=== PATIENT | male | born 1940 | race Caucasian/White ===

== ENCOUNTER → 2018-11-01 | Outpatient (CLI) | payer OTHER ==
[~2018-11-01] MED LIST: AGGRENOX 25 MG1 EACH PO; AMARYL2 MG PO; AMARYL4 MG PO; ARICEPT10 M1 PO; ASPIR 8181 MG PO; ASPIRIN325 PO; BACTRIM 400-801 EACH; DOXYCYCLINE HYC50 MG PO; GLIMEPIRIDE1 MG PO; HYDROXYZINE HCL25 M1 PO; IMDUR 60 MG TAB60 M1 PO; LANTUS SUBQ; LASIX 40 MG TAB40 M2 PO; LIPITOR40 MG PO; LISINOPRIL20 MG PO; LOCOID 0.1% CRE15 GM TOP; MIRALAX17 GM PO; NAMENDA 5 MG TAB5 M1 PO; NIACIN50 MG PO; PLAVIX 75 MG TA75 M1 PO; RANEXA1000 MG PO; SLO-NIACIN500 MG PO; SPIRONOLACTONE25 M1 PO; TOPROL XL50 MG PO; ZANTAC 150MG T150 M1 PO
== END ==
LOC: M.ULTRA 14:46
DX: R22.1 Localized swelling, mass and lump, neck (principal)

== ENCOUNTER → 2018-11-10 | Outpatient (CLI) | payer OTHER | LOC: M.CT 10:43 | DX: R22.1 Localized swelling, mass and lump, neck (principal); M47.812 Spondylosis without myelopathy or radiculopathy, cervical region; I25.10 Atherosclerotic heart disease of native coronary artery without angina pectoris; Z95.0 Presence of cardiac pacemaker ==

== ENCOUNTER → 2018-11-17 | Outpatient (CLI) | payer OTHER ==
--- NOTE | 2018-11-22 17:07 | PATH ---
[address] [address] PATHOLOGY RPT PROCEDURE Name: TARA GRAY Room: [facility] ZOË Sanchez#: [id number] Admission: 11/17/18 Date of : 36 Discharge: Report #: [id number] Path Case #: [id number] LCA Accession Number: [id number] . 01 Material submitted: . LEFT SIDE NECK MASS . 01 Clinical history: . Left side neck mass 1.7 x 2.0 x 1.2 . 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 See comment. (SHANTEL:pit 11/22/2018) QTP/11/22/2018 . 02 Comment: A panel of properly controlled immunohistochemical stains performed on A1 shows the malignant cells to have the following characteristics: Keratin Luis: Positive P16: Positive P40: Negative CK7: Negative CK20: Negative S100: Negative TTF-1: Negative CDX-2: Negative LCA: Negative; highlights background lymphoid population PSA: Negative . These findings are most consistent with a poorly differentiated squamous cell and with the p16 positivity (HPV surrogate marker), suggests a head and neck origin. Other immunohistochemistry suggests a lung, colorectal, or prostatic primary to be unlikely. . Discussed with Dr. Deleon at approximately 1140 on 11/22/2018. Reviewed with Dr. Sergey Pereira who agrees with the diagnosis. (SHANTEL:pit 11/22/2018) . 02 Electronically signed: . Prudencio Gunn MD, Pathologist NPI- [id number] . 01 Gross description: . Received in formalin labeled "Tara Gray, lymph node BX," are 2 distinct needle cores of lee soft tissue measuring 0.6 and 1.5 [place] [address] PATHOLOGY RPT PROCEDURE Name: TARA GRAY Room: [facility]#: [id number] Admission: 11/17/18 Date of : 36 Discharge: Report #: [id number] Path Case #: [id number] length and less than 0.1 cm each in diameter. The specimen is submitted entirely in cassette A1 and A2. (TSD; 11/17/2018) TOB/TOB . 02 Pathologist provided ICD-10: C79.89 . 02 CPT . 167344, V10575, M71667 Specimen Comment: A courtesy copy of this report has been sent to Specimen Comment: [phone]. Specimen Comment: Report sent to Performed at: [address], [place], [place] [id number] MD Joe Morton MD Phone: [phone] Performed at: 02 [facility] [address], [place], [place] [id number] MD Prudencio Gunn MD Phone: [phone]
== END | disposition home or self-care (01) ==
LOC: M.ULTRA 08:04
DX: C96.Z Other specified malignant neoplasms of lymphoid, hematopoietic and related tissue (principal); I12.9 Hypertensive chronic kidney disease with stage 1 through stage 4 chronic kidney disease, or unspecified chronic kidney disease; E11.22 Type 2 diabetes mellitus with diabetic chronic kidney disease; N18.3 Chronic kidney disease, stage 3 (moderate); E78.00 Pure hypercholesterolemia, unspecified; F03.90 Unspecified dementia, unspecified severity, without behavioral disturbance, psychotic disturbance, mood disturbance, and anxiety; R41.82 Altered mental status, unspecified; Z88.2 Allergy status to sulfonamides; Z88.8 Allergy status to other drugs, medicaments and biological substances; Z79.82 Long term (current) use of aspirin; Z79.899 Other long term (current) drug therapy; Z86.73 Personal history of transient ischemic attack (TIA), and cerebral infarction without residual deficits; Z95.1 Presence of aortocoronary bypass graft; Z87.891 Personal history of nicotine dependence; Z79.4 Long term (current) use of insulin; Z98.890 Other specified postprocedural states

== ENCOUNTER 2019-02-22 08:18 | Inpatient (IN) | payer OTHER ==
[2019-02-22] VITALS (33 sets, daily range): BP systolic 68–139; BP diastolic 28–103
[~2019-02-22] VITALS: Ht 188 cm; Wt 104.0 kg
--- NOTE | ~2019-02-22 | PROC ---
[address] [address] PROCEDURE REPORT Name: TARA BROWNLEE Room: [place] [address] ADM IN ..#: [id number] Admission: 02/22/19 Attend Phys: Anthony Trinidad MD Discharge: Date of : 36 Report #: [id number] THIS REPORT FOR: //name// For GI report, please see the Provation report in Perceptive 7 content. By: [id number] Records Staff KENISHA /PANCHITO
--- NOTE | ~2019-02-22 | CON ---
[address] [address] CONSULTATION Name: TARA BROWNLEE Room: [address] IN .R.#: [id number] Admission: 02/22/19 Attend Phys: Leigh Trinidad MD Discharge: Date of : 38 Report #: [id number] THIS REPORT FOR: //name// CC: LEIGH Sengie [facility] DATE OF SERVICE: 02/23/2019 REQUESTING PHYSICIAN: Leigh Trinidad MD REASON FOR CONSULT: Dysphagia and evaluation for possible PEG tube. HISTORY OF PRESENT ILLNESS: This is an 78-year-old male with history of dementia and lymphoma who has received 33 rounds of radiation. He has 3 more to complete. He presented to the hospital with weakness and unresponsiveness based on his . Since admission to hospital, he noticed to have difficulty swallowing as he was choking and coughing when he was attempting to eat. Swallow study has been performed by speech therapist and they recommended thickening liquids. The patient also takes Plavix, which has been hold since 02/22/2019. PAST MEDICAL HISTORY: 1. Significant for history of lymphoma, status post radiation therapy with 3 more radiation left. 2. Dementia. 3. CVA. 4. Diabetes mellitus. 5. Hypertension. 6. Dyslipidemia. 7. Coronary artery disease, status post CABG in 1989. ALLERGIES: Significant to BACTRIM. MEDICATIONS: Please refer to hospital MAR. SOCIAL HISTORY: The patient has remote history of tobaccoism, but does not smoke anymore. He does not also drink alcoholic beverage. He lives with his and appears to be supportive as she is sitting by bedside and gives most of the history. FAMILY HISTORY: Noncontributory. PHYSICAL EXAMINATION: VITAL SIGNS: Reveals blood pressure of 109/38, respirations 12, pulse 73, [place] [address] CONSULTATION Name: TARA BROWNLEE Room: [address]#: [id number] Admission: 02/22/19 Attend Phys: Leigh Trinidad MD Discharge: Date of : 38 Report #: [id number] temperature 98.7. LUNGS: Clear. CARDIOVASCULAR: Regular. ABDOMEN: Soft, nontender, nondistended. Bowel sounds are positive. NEUROLOGIC: The patient is able to answer questions properly. He appears weak and sleepy. LABORATORY DATA: Reveal sodium of 142, potassium 4.0, BUN is 29, creatinine 1.1, glucose is 187. Liver function tests all within normal limits. Calcium 7.8. WBC is 8.6 with hemoglobin of 10.5 and platelet of 175. ASSESSMENT AND PLAN: The patient with a history of radiation therapy to the chest who was admitted to the hospital with weakness and nonresponsiveness. The patient is feeling better, but has difficulty with swallowing. We will recommend to reorder the swallow test on Tuesday and we will consider an EGD with dilation versus PEG tube placement on 02/27/2019. By then, the patient would be without intake of Plavix for 5 days. By: [id number] Fine MD /nt
[2019-02-22 08:39] LABS: HEMATOCRIT 39.4 % (42.0-52.0); HEMOGLOBIN 13.3 gm/dL (14.0-18.0); MCH 32.4 pg (26.0-34.0); MCHC 33.7 g/dL (28.0-37.0); MCV 96.1 fL (80.0-100.0); MPV 7.6 fl. (7.2-11.1); NUCLEATED RBCS 0 /100WBC; PLATELET COUNT* 275 thou/uL (150-400); RDW-CV 14.1 % (10.5-14.5); WBC 16.2 thou/uL (4.0-11.0)
[2019-02-22 08:47] LABS: CALCIUM 9.5 mg/dL (8.5-10.1); CREATININE 2.8 mg/dL (0.6-1.3); POTASSIUM 5.7 mmol/L (3.5-5.1)
[2019-02-22 08:49] LABS: APTT 23.6 Seconds (25.0-31.3); INR 1.1; PROTIME 10.9 Seconds (9.20-11.50)
[2019-02-22 08:58] LABS: ALBUMIN 2.5 g/dL (3.4-5.0); TOTAL BILIRUBIN 0.5 mg/dL (<0.1-1.0); TOTAL PROTEIN 6.7 g/dL (6.4-8.2); TROPONIN-I LEVEL 0.07 ng/mL (<0.06)
[2019-02-22 09:17] LABS: ABSOLUTE LYMPHOCYTES 0.2 thou/uL (0.8-5.3); ABSOLUTE MONOCYTES 0.8 thou/uL (0.0-1.2); ABSOLUTE NEUTROPHILS 15.2 thou/uL (1.6-8.1); CLUMPED PLTS RARE; PLATELET ESTIMATE ADEQUATE
[2019-02-22 09:18] LABS: GIANT PLATELETS RARE; MACROCYTES 1+
[2019-02-22 09:19] LABS: TOXIC GRANULATION 1+
[2019-02-22 22:37] LABS: URINE BILIRUBIN NEGATIVE (Negative); URINE BLOOD NEGATIVE (Negative); URINE CLARITY CLEAR; URINE COLOR DARK YELLOW; URINE GLUCOSE-RANDOM 2+ (Negative); URINE KETONES NEGATIVE (Negative); URINE LEUKOCYTES-REFLEX NEGATIVE (Negative); URINE NITRITE-REFLEX NEGATIVE (Negative); URINE PROTEIN NEGATIVE (Negative); URINE UROBILINOGEN 0.2 E.U./dl (0.2-1.0)
[2019-02-23] VITALS (50 sets, daily range): BP systolic 80–139; BP diastolic 31–75
[2019-02-23 04:40] LABS: ABSOLUTE LYMPHOCYTES 0.4 thou/uL (0.8-5.3); ABSOLUTE NEUTROPHILS 11.1 thou/uL (1.6-8.1); BASOPHILS 0.3 %; EOSINOPHILS 0.3 %; HEMATOCRIT 32.6 % (42.0-52.0); LYMPHOCYTES 3.2 %; MCH 31.8 pg (26.0-34.0); MCHC 33.3 g/dL (28.0-37.0); MCV 95.6 fL (80.0-100.0); MONOCYTES 8.1 %; MPV 7.4 fl. (7.2-11.1); NUCLEATED RBCS 0 /100WBC; POLYS 88.1 %; RBC 3.41 mil/uL (4.50-6.00); RDW-CV 14.1 % (10.5-14.5); WBC 12.5 thou/uL (4.0-11.0)
[2019-02-23 04:58] LABS: CALCIUM 8.5 mg/dL (8.5-10.1); TROPONIN-I LEVEL 0.09 ng/mL (<0.06)
[2019-02-23 05:00] LABS: CREATININE 1.6 mg/dL (0.6-1.3); POTASSIUM 4.4 mmol/L (3.5-5.1)
[2019-02-23 05:02] LABS: PREALBUMIN 14.4 mg/dL (18.0-35.7)
[2019-02-23 05:05] LABS: HEMOGLOBIN 10.9 gm/dL (14.0-18.0); PLATELET COUNT* 200 thou/uL (150-400)
--- NOTE | 2019-02-23 11:04 | EKG ---
[place] [address] ELECTROCARDIOGRAM REPORT Name: TARA BROWNLEE Room: [address] ADM IN M.R.#: [id number] Admission: 02/22/19 Attend Phys: Anthony Trinidad MD Discharge: Date of : 36 Report #: [id number] THIS REPORT FOR: //name// [facility] ED Test Date: 2019-02-22 Test Time: 08:34:30 Pat Name: TARA BROWNLEE Department: Room: [facility] Gender: M Principal Examiner: : 1940 Requested By: Lenin Altamirano Order Number: [id number] MD: Luciano Fiore Measurements Intervals [place] Rate: 89 P: -33 SC: 162 QRS: 30 QRSD: 149 T: 168 QT: 409 QTc: 498 Interpretive Statements Atrial-sensed ventricular-paced rhythm No further analysis attempted due to paced rhythm Baseline wander in lead(s) V1,V2,V3 Compared to ECG 10/05/2018 20:32:51 No significant changes Electronically Signed On 02-23-2019 11:04:46 CDT by Luciano Fiore [email or web address] <ELECTRONICALLY SIGNED> By: Luciano Fiore MD, [facility] 02/23/19 1104 0834 0834 Luciano Fiore MD, [facility] /EPI
[2019-02-24] VITALS (29 sets, daily range): BP systolic 76–130; BP diastolic 28–66
[2019-02-24 08:39] LABS: ABSOLUTE EOSINOPHILS 0.2 thou/uL (0.0-0.7); ABSOLUTE LYMPHOCYTES 0.4 thou/uL (0.8-5.3); ABSOLUTE MONOCYTES 0.7 thou/uL (0.0-1.2); ABSOLUTE NEUTROPHILS 7.3 thou/uL (1.6-8.1); BASOPHILS 0.4 %; EOSINOPHILS 1.8 %; HEMATOCRIT 30.7 % (42.0-52.0); HEMOGLOBIN 10.5 gm/dL (14.0-18.0); LYMPHOCYTES 4.7 %; MCH 32.7 pg (26.0-34.0); MONOCYTES 8.4 %; MPV 7.4 fl. (7.2-11.1); NUCLEATED RBCS 0 /100WBC; PLATELET COUNT* 175 thou/uL (150-400); POLYS 84.7 %; RDW-CV 13.9 % (10.5-14.5); WBC 8.6 thou/uL (4.0-11.0)
[2019-02-24 09:00] LABS: ALBUMIN 1.5 g/dL (3.4-5.0); CALCIUM 7.8 mg/dL (8.5-10.1); CREATININE 1.1 mg/dL (0.6-1.3); TOTAL BILIRUBIN 0.8 mg/dL (<0.1-1.0); TOTAL PROTEIN 5.2 g/dL (6.4-8.2)
[2019-02-25] VITALS (14 sets, daily range): BP systolic 102–140; BP diastolic 34–69
[2019-02-25 03:24] LABS: ABSOLUTE EOSINOPHILS 0.2 thou/uL (0.0-0.7); ABSOLUTE LYMPHOCYTES 0.4 thou/uL (0.8-5.3); ABSOLUTE MONOCYTES 0.8 thou/uL (0.0-1.2); ABSOLUTE NEUTROPHILS 5.5 thou/uL (1.6-8.1); BASOPHILS 0.3 %; EOSINOPHILS 2.3 %; HEMATOCRIT 30.1 % (42.0-52.0); HEMOGLOBIN 10.1 gm/dL (14.0-18.0); LYMPHOCYTES 5.3 %; MCHC 33.5 g/dL (28.0-37.0); MCV 95.6 fL (80.0-100.0); MPV 7.8 fl. (7.2-11.1); NUCLEATED RBCS 0 /100WBC; PLATELET COUNT* 152 thou/uL (150-400); POLYS 81.1 %; RBC 3.15 mil/uL (4.50-6.00); RDW-CV 13.9 % (10.5-14.5); WBC 6.8 thou/uL (4.0-11.0)
[2019-02-25 03:39] LABS: ALBUMIN 1.8 g/dL (3.4-5.0); CALCIUM 8.2 mg/dL (8.5-10.1); POTASSIUM 3.5 mmol/L (3.5-5.1); TOTAL BILIRUBIN 0.7 mg/dL (<0.1-1.0); TOTAL PROTEIN 5.1 g/dL (6.4-8.2)
[2019-02-26] VITALS: BP 111/49
[2019-02-26 04:03] LABS: ABSOLUTE EOSINOPHILS 0.2 thou/uL (0.0-0.7); ABSOLUTE LYMPHOCYTES 0.4 thou/uL (0.8-5.3); ABSOLUTE MONOCYTES 0.7 thou/uL (0.0-1.2); ABSOLUTE NEUTROPHILS 6.2 thou/uL (1.6-8.1); BASOPHILS 0.4 %; EOSINOPHILS 2.1 %; HEMATOCRIT 30.2 % (42.0-52.0); HEMOGLOBIN 10.3 gm/dL (14.0-18.0); LYMPHOCYTES 5.5 %; MCH 32.5 pg (26.0-34.0); MCV 95.6 fL (80.0-100.0); MONOCYTES 9.8 %; NUCLEATED RBCS 0 /100WBC; PLATELET COUNT* 163 thou/uL (150-400); POLYS 82.2 %; RBC 3.16 mil/uL (4.50-6.00); RDW-CV 13.9 % (10.5-14.5); WBC 7.6 thou/uL (4.0-11.0)
[2019-02-26 04:15] LABS: CALCIUM 8.3 mg/dL (8.5-10.1); POTASSIUM 3.2 mmol/L (3.5-5.1)
[2019-02-26 04:23] VITALS: BP 101/45
[2019-02-26 07:42] VITALS: BP 114/58
[2019-02-26 11:39] VITALS: BP 106/58
[2019-02-26 17:01] VITALS: BP 102/45
[2019-02-26 20:42] VITALS: BP 114/59
[2019-02-27] VITALS: BP 113/51
[2019-02-27 04:00] VITALS: BP 110/43
[2019-02-27 08:00] VITALS: BP 113/42
--- NOTE | 2019-02-27 09:37 | CON ---
[address] [address] CONSULTATION Name: TARA BROWNLEE Room: [address] IN M.R.#: [id number] Admission: 02/22/19 Attend Phys: Anthony Trinidad MD Discharge: Date of : 36 Report #: [id number] THIS REPORT FOR: //name// CC: Anthony Deleon DATE OF SERVICE: 02/24/2019 DIAGNOSIS: Head and neck cancer. HISTORY OF PRESENT ILLNESS: The patient is an 78-year-old male who has been under treatment of definitive radiation. The patient was seen previously by Dr. Weiss and Dr. Dong, and he was felt not to be a good candidate for chemotherapy in combination with radiation. Per the , the patient is almost done with his radiation. He has 3 fractions left. However, he was admitted because of episodes of emesis, and in addition to that, he has been only on liquids with significant progressive poor intake. The patient, by the time of his evaluation, he received intravenous IV fluids and antiemetic medication. He, in addition to that, received antibiotics for possible aspiration pneumonia. I discussed with the at the bedside the timeframe of radiation side effects. REVIEW OF SYSTEMS: All systems were reviewed and it was unremarkable. PAST MEDICAL HISTORY: Squamous cell carcinoma of head and neck, p16 positive; contact dermatitis; questionable pneumonia; diabetes mellitus; dyslipidemia and hypertension. MEDICATIONS: Per admission list. ALLERGIES: BACTRIM. PAST SURGICAL HISTORY: CABG. SOCIAL HISTORY: He is an ex-smoker. No alcohol or drug abuse. FAMILY HISTORY: Noncontributory. PHYSICAL EXAMINATION: VITAL SIGNS: Today, temperature 37.1, pulse is 73, respirations are 12 and blood pressure is 109/39. GENERAL: The patient is lying in bed. He is not in acute distress. LUNGS: Decreased breathing sounds bilaterally. HEART: Regular rate and rhythm. S1, S2 within normal limits. ABDOMEN: Soft, nontender [place] [address] CONSULTATION Name: TARA BROWNLEE Room: [address] IN [facility]#: [id number] Admission: 02/22/19 Attend Phys: Anthony Trinidad MD Discharge: Date of : 36 Report #: [id number] LABORATORY DATA: Today, WBC is 8.6, hemoglobin 10.5 and platelets 175. Creatinine is 1.1, improved from 2.8 and calcium is 7.8. IMAGING: CT scan of the head showed old infarct. Chest x-ray: Some left basilar atelectasis/infiltrates. No pneumothorax. ASSESSMENT AND PLAN: An 78-year-old male diagnosed with head and neck cancer, squamous cell carcinoma, treated with definitive radiation only. The patient was deemed not to be a good candidate for concurrent chemotherapy. In addition to that, the patient almost finished his radiation treatment, 3 fractions have been left. At this point, the patient is having side effects of the radiation including dysphagia and decreased oral intake in addition to possible infection. RECOMMENDATION: 1. At this point, agree with current supportive care including generous IV fluids due to his dehydration and renal failure. 2. Antibiotics for possible aspiration pneumonia. 3. I discussed with the and she stated the patient declined tube feeding before. 4. Expected recovering from radiation side effects in the next 3-4 weeks. We will notify Radiation Oncology with his admission in addition to recommendation for dietitian. <ELECTRONICALLY SIGNED> By: Mihir Dailey MD 02/27/19 0937 1319 2018Mihir Dailey MD /nt
[2019-02-27 12:10] VITALS: BP 90/43
[2019-02-27 16:23] VITALS: BP 90/49
[2019-02-27 20:10] VITALS: BP 106/83
[2019-02-28] VITALS (7 sets, daily range): BP systolic 101–133; BP diastolic 45–53
[2019-02-28 06:55] LABS: ABSOLUTE EOSINOPHILS 0.1 thou/uL (0.0-0.7); ABSOLUTE LYMPHOCYTES 0.4 thou/uL (0.8-5.3); ABSOLUTE NEUTROPHILS 5.7 thou/uL (1.6-8.1); BASOPHILS 0.4 %; EOSINOPHILS 1.4 %; HEMATOCRIT 26.8 % (42.0-52.0); LYMPHOCYTES 5.3 %; MCH 32.3 pg (26.0-34.0); MCHC 33.5 g/dL (28.0-37.0); MCV 96.5 fL (80.0-100.0); NUCLEATED RBCS 0 /100WBC; PLATELET COUNT* 176 thou/uL (150-400); POLYS 78.9 %; RBC 2.78 mil/uL (4.50-6.00); WBC 7.3 thou/uL (4.0-11.0)
[2019-02-28 07:05] LABS: CALCIUM 7.9 mg/dL (8.5-10.1); CREATININE 1.3 mg/dL (0.6-1.3); POTASSIUM 3.5 mmol/L (3.5-5.1)
[2019-02-28 12:09] LABS: INR 1.1; PROTIME 11.7 Seconds (9.20-11.50)
[2019-03-01 04:00] VITALS: BP 116/52
[2019-03-01 08:00] VITALS: BP 141/58
[2019-03-01 12:26] VITALS: BP 112/61
--- NOTE | 2019-03-01 14:22 | CON ---
[address] [address] CONSULTATION Name: TARA BROWNLEE Room: [address] IN .R.#: [id number] Admission: 02/22/19 Attend Phys: Anthony Trinidad MD Discharge: Date of : 38 Report #: [id number] THIS REPORT FOR: //name// CC: Anthony Deleon DO INDICATION: Atrial fibrillation. HISTORY OF PRESENT ILLNESS: The patient is a very pleasant 78-year-old male who is well known to myself. He has been followed for coronary artery disease and ischemic cardiomyopathy with an ejection fraction of 20%-25%. He has an ICD in place for TELE[employer] MECH[employer]IC and primary prevention. His ICD is a biventricular ICD by interrogation today. He was recently brought into the hospital with nausea, vomiting, poor p.o. intake, mental status changes, and generalized deconditioning. Of note, he has been treated for head and neck cancer with approximately 30 radiation treatments. With physical therapy and occupational therapy and nutritional treatment in the hospital, he is improving. He was noted to have possibly a pacemaker malfunction on telemetry. Interrogation of his pacemaker shows that his biventricular pacemaker is functioning normally. He has, however, not biventricular pacing due to the fact that he has been in atrial fibrillation for the past couple of days and his ventricular rate is above his pacing rate. He denies any chest pain. He does not have any significant shortness of breath. He does not appear volume overloaded. PAST MEDICAL HISTORY: 1. Coronary artery disease with previous coronary artery bypass grafting. He has a left internal mammary artery graft to the left anterior descending that is patent. His [place] arteries are occluded. He had a saphenous vein graft to the circumflex, which was occluded. He has extensive left to right collaterals. 2. He has hypertension. 3. Dyslipidemia. 4. Type 2 diabetes mellitus. 5. Head and neck cancer. 6. Ischemic cardiomyopathy. 7. History of cerebrovascular accident. ALLERGIES: BACTRIM. CURRENT MEDICATIONS: Aspirin 81 mg daily, atorvastatin 80 mg at bedtime, Plavix 75 mg daily, Aricept 10 mg daily, furosemide 20 mg daily, glimepiride 2 mg at breakfast, hydroxyzine 25 mg p.r.n., Lantus 27 units at bedtime, lisinopril 20 mg daily, Namenda 5 mg daily, metoprolol succinate 50 mg b.i.d., niacin 50 mg daily, MiraLax 17 grams p.r.n., ranolazine 1000 mg b.i.d., and spironolactone 25 [place] [address] CONSULTATION Name: TARA BROWNLEE Room: [address] IN ..#: [id number] Admission: 02/22/19 Attend Phys: Anthony Trinidad MD Discharge: Date of : 36 Report #: [id number] FAMILY HISTORY: Noncontributory. SOCIAL HISTORY: The patient quit smoking remotely. He does not drink alcohol. PHYSICAL EXAMINATION: VITAL SIGNS: Stable. Blood pressure 141/58, pulse is in the 80s, and irregular. GENERAL: This is a pleasant gentleman who is in no distress. Mood and affect appropriate. HEENT: Extraocular muscles are intact. Mucous membranes are moist. NECK: Shows no jugular venous distention. CHEST: Reveals diminished breath sounds. without wheezes or rales. CARDIOVASCULAR: Reveals an irregularly irregular rhythm. I do not appreciate gallop or murmur. ABDOMEN: Reveals normal bowel sounds. PEG tube in place. EXTREMITIES: Shows no significant edema. SKIN: Warm and dry. LABORATORY DATA: Reviewed. Electrolytes are stable. BUN 10 and creatinine 1.3. IMPRESSION AND RECOMMENDATIONS: 1. New onset atrial fibrillation. At this point in time, we will start an amiodarone drip and bolus in an attempt to return to sinus rhythm. Due to extensive comorbidities and fall risk, I am not inclined to start anticoagulant therapy at this time. We will follow clinically. 2. Ischemic cardiomyopathy, presently appears well compensated. 3. Coronary artery disease, presently not having angina. He is on appropriate antiplatelet therapy. 4. Biventricular implantable cardioverter-defibrillator in place for cardiac resynchronization therapy and primary prevention, functioning normally by interrogation today. 5. Head and neck cancer per Oncology. He has completed 30 radiation treatments. 6. Diabetes per primary physician. 7. Hyperlipidemia. Continue atorvastatin at current dose. 8. Chronic systolic heart failure, presently compensated. 9. Hypercoagulable state due to atrial fibrillation. At this point in time, due to comorbid age and fall risk, I am not starting anticoagulant therapy. <ELECTRONICALLY SIGNED> By: Efren Martinez MD, FACC 03/01/19 1422 0930 [id number] Martinez MD, FACC /nt
[2019-03-01 16:28] VITALS: BP 119/34
[2019-03-01 20:00] VITALS: BP 114/60
[2019-03-02] VITALS: BP 113/59
[2019-03-02 04:00] VITALS: BP 126/52
[2019-03-02 07:45] VITALS: BP 121/56
[2019-03-02 12:07] VITALS: BP 110/60
[2019-03-02 16:55] VITALS: BP 129/57
[2019-03-02 20:00] VITALS: BP 128/66
[2019-03-03] VITALS: BP 120/53
[2019-03-03 01:13] LABS: ABSOLUTE EOSINOPHILS 0.1 thou/uL (0.0-0.7); ABSOLUTE LYMPHOCYTES 0.3 thou/uL (0.8-5.3); ABSOLUTE MONOCYTES 0.8 thou/uL (0.0-1.2); ABSOLUTE NEUTROPHILS 7.3 thou/uL (1.6-8.1); BASOPHILS 0.2 %; EOSINOPHILS 0.9 %; HEMATOCRIT 27.9 % (42.0-52.0); HEMOGLOBIN 9.3 gm/dL (14.0-18.0); LYMPHOCYTES 3.6 %; MCH 32.1 pg (26.0-34.0); MCHC 33.5 g/dL (28.0-37.0); MCV 96.1 fL (80.0-100.0); MONOCYTES 9.5 %; MPV 7.4 fl. (7.2-11.1); NUCLEATED RBCS 0 /100WBC; PLATELET COUNT* 243 thou/uL (150-400); POLYS 85.8 %; RBC 2.91 mil/uL (4.50-6.00); RDW-CV 14.6 % (10.5-14.5); WBC 8.5 thou/uL (4.0-11.0)
[2019-03-03 01:18] LABS: CALCIUM 8.6 mg/dL (8.5-10.1); CREATININE 1.6 mg/dL (0.6-1.3); POTASSIUM 3.1 mmol/L (3.5-5.1)
[2019-03-03 04:00] VITALS: BP 123/54
[2019-03-03 08:00] VITALS: BP 123/48
[2019-03-03 11:30] VITALS: BP 108/63
[2019-03-03 16:00] VITALS: BP 106/58
[2019-03-03 20:00] VITALS: BP 115/61
[2019-03-04] VITALS: BP 102/50
[2019-03-04 04:00] VITALS: BP 111/47
[2019-03-04 06:08] LABS: ABSOLUTE EOSINOPHILS 0.1 thou/uL (0.0-0.7); ABSOLUTE LYMPHOCYTES 0.4 thou/uL (0.8-5.3); ABSOLUTE MONOCYTES 0.7 thou/uL (0.0-1.2); BASOPHILS 0.5 %; EOSINOPHILS 1.5 %; HEMATOCRIT 26.4 % (42.0-52.0); HEMOGLOBIN 8.9 gm/dL (14.0-18.0); LYMPHOCYTES 5.6 %; MCH 32.4 pg (26.0-34.0); MCHC 33.7 g/dL (28.0-37.0); MCV 96.3 fL (80.0-100.0); MONOCYTES 9.7 %; MPV 7.6 fl. (7.2-11.1); NUCLEATED RBCS 0 /100WBC; PLATELET COUNT* 221 thou/uL (150-400); POLYS 82.7 %; RBC 2.74 mil/uL (4.50-6.00); RDW-CV 15.1 % (10.5-14.5); WBC 7.3 thou/uL (4.0-11.0)
[2019-03-04 06:13] LABS: CALCIUM 8.5 mg/dL (8.5-10.1); CREATININE 1.1 mg/dL (0.6-1.3); POTASSIUM 3.9 mmol/L (3.5-5.1)
[2019-03-04 07:45] VITALS: BP 119/57
[2019-03-04 11:40] VITALS: BP 103/52
[2019-03-04 15:50] VITALS: BP 118/61
[2019-03-05 04:00] VITALS: BP 127/62
[2019-03-05 08:21] VITALS: BP 115/64
[2019-03-05] MEDS ORDERED: HUMALOG100 UNIT/1 SUBQ (09:57)
[2019-03-05] MEDS ORDERED: PROTONIX40 M1 PO (10:10)
[2019-03-05 12:00] VITALS: BP 115/59
[2019-03-05] MEDS ORDERED: REGLAN 10 MG TA10 MG PER TUBE (15:21)
[2019-03-05 15:31] VITALS: BP 115/59
== END 2019-03-05 17:08 | DRG 871 ==
LOC: M.ERS 08:18 → M.TBA-ER 10:08 → M.ICU 10:08 → M.TBA-ER 11:42 → M.ICU 14:37 → M.2W 02-26 23:02
PROVIDERS: Emergency Medicine Emergency Medical Services; Nurse Practitioner Adult Health; ADMIT Internal Medicine
PROC: 02HV33Z Insertion of Infusion Device into Superior Vena Cava, Percutaneous Approach (ICD-10-PCS; principal; 2019-02-22)
PROC: 0DH63UZ Insertion of Feeding Device into Stomach, Percutaneous Approach (ICD-10-PCS; 2019-02-28)
PROC: 4B02XTZ Measurement of Cardiac Defibrillator, External Approach (ICD-10-PCS; 2019-03-01)
DX: A41.9 Sepsis, unspecified organism (principal); J69.0 Pneumonitis due to inhalation of food and vomit; N17.0 Acute kidney failure with tubular necrosis; R65.21 Severe sepsis with septic shock; E43 Unspecified severe protein-calorie malnutrition; C85.90 Non-Hodgkin lymphoma, unspecified, unspecified site; I50.22 Chronic systolic (congestive) heart failure; D68.59 Other primary thrombophilia; G93.40 Encephalopathy, unspecified; E86.0 Dehydration; F03.90 Unspecified dementia, unspecified severity, without behavioral disturbance, psychotic disturbance, mood disturbance, and anxiety; E11.9 Type 2 diabetes mellitus without complications; E78.5 Hyperlipidemia, unspecified; I25.5 Ischemic cardiomyopathy; I48.0 Paroxysmal atrial fibrillation; L89.602 Pressure ulcer of unspecified heel, stage 2; I11.0 Hypertensive heart disease with heart failure; I95.9 Hypotension, unspecified; E11.65 Type 2 diabetes mellitus with hyperglycemia; I25.10 Atherosclerotic heart disease of native coronary artery without angina pectoris; E78.00 Pure hypercholesterolemia, unspecified; Z86.73 Personal history of transient ischemic attack (TIA), and cerebral infarction without residual deficits; Z79.82 Long term (current) use of aspirin; Z95.1 Presence of aortocoronary bypass graft; Z79.4 Long term (current) use of insulin; Z79.899 Other long term (current) drug therapy; Z88.2 Allergy status to sulfonamides; Z88.8 Allergy status to other drugs, medicaments and biological substances; Z87.891 Personal history of nicotine dependence; Z68.29 Body mass index [BMI] 29.0-29.9, adult